=== PATIENT | male | born 2000 | race Caucasian/White ===

== ENCOUNTER → 2023-07-12 12:43 | Outpatient (CLI) | payer OTHER, SELFPAY ==
--- NOTE | ~2023-07-12 | MR_ITS ---
MRI of the left foot CLINICAL HISTORY: Pain TECHNIQUE: Axial proton-density and proton-density fat-sat images, sagittal T1-weighted and STIR imag es, and coronal T1-weighted and proton-density fat-sat images were acquired. FINDINGS: There is mild degenerative change of the first metatarsophalangeal joint, with focal subcho ndral marrow edema at the first metatarsal head, as well as chondromalacia of the joint. There is als o mild degenerative change of the interphalangeal joint of the great toe. Remaining joint spaces are preserved. No other bone marrow signal abnormality seen. No evidence for fracture or osteomyelitis. N o significant joint effusion identified. Flexor and extensor tendons appear intact. Visualized plantar fascia is intact. Intrinsic muscular fo ot is unremarkable. No intermetatarsal bursitis or Mueller's neuroma. No soft tissue mass or fluid col lection. Lisfranc ligament is intact. IMPRESSION: Mild degenerative change of the first MTP joint and interphalangeal joint of the great toe. Reviewed, dictated and finalized at location . IMPRESSION: Mild degenerative change of the first MTP joint and interphalangeal joint of th e great toe.
== END ==
PROVIDERS: PCP Physical Medicine & Rehabilitation; Visit Provider Physical Medicine & Rehabilitation
DX: M79.672 Pain in left foot (principal)
CPT/HCPCS: 73718

== ENCOUNTER 2023-11-15 00:19 | Day surgery (SDC) | payer OTHER, SELFPAY ==
[2023-11-11 10:13] VITALS: BMI 24.4
--- NOTE | 2023-11-11 10:16 | PC.NURSE ---
Report to the Outpatient Waiting Room, entrance under the green pavilion located off [facility], at time 0630 on date 11/15/23. Planned Procedure Time: . Time changes happen often and if your time is changed the preop area will call you the afternoon before. - You and your visitor will be asked to self-screen and do not enter if you have any COVID symptoms. - A mask is optional within the hospital at this time. Patients may have clear liquids (water, carbonated beverages, clear teas, apple juice) until 3 hours prior to surgery with a maximum of 20 ounces. - No food from midnight until time of surgery Take the following medications with a SIP of water the morning of surgery: N/A DO NOT STOP ANY OF YOUR OTHER PRESCRIPTION MEDICATIONS PRIOR TO SURGERY ?EXCEPT THE FOLLOWING Medications to discontinue per physician: N/A Date to take last dose: N/A Please no make-up, nail malawian, hairspray, perfume, deodorant, or body powder the day of surgery. No jewelry (including any body piercings) or valuables the day of surgery, leave them at home. Please take a shower or bath the night before, or the morning of, surgery with an antibacterial soap. Wear comfortable, loose fitting clothing. - Jewelry must be removed prior to entering the operating room. Rings and piercings that are not removed may be cut off. - The hospital will not accept responsibility for valuables. - Please leave all valuables, including medications, at home the day of surgery. If you are going home after surgery, a licensed flatbed truck driver must drive you home. - NO public transportation without another adult if you receive anesthesia. - We recommend that an adult stay with you for 24 hours following discharge. - We also recommend that you do not drive, make important decision, drink alcoholic beverages, or take any drugs that were not prescribed by your health care provider for at least 24 hours after your discharge time. Follow any additional instructions given to you from your surgeon. If you or anyone in your household have experienced Covid symptoms in the past week, please notify your surgeon or the nurse liaison at the phone number below for possible testing. Telephone instructions given to PT Estee HORTON and asked if any additional questions and then verbalized understanding. Patient advised to call surgeon office or pre surgery nurse liaison [phone] if any additional questions.
--- NOTE | 2023-11-14 10:23 | PM.IMHP ---
H&P: HPI History of Present Illness Date/Time: 11/14/23 10:23 Chief Complaint: Nasal obstruction septal deviation turbinate hypertrophy nasal adhesions from turbinates to septum Narrative: planned procedure Review of Systems Review of Systems: All systems reviewed & are unremarkable except as noted in HPI and below [facility] Social History Social History (Updated 09/04/23 @ 16:16 by Angela White [facility]) Smoking status: Never smoker Alcohol intake: current Alcohol use details: RARE Substance use: never Substance use type: does not use Lack of Transportation: No Lack of Food: Never True Current Housing: I Have Housing Concerned About Future Housing: No Difficulty Paying Gas/Electric Bills: No Difficulty Paying for Meds: No Currently Unemployed: No Education: Bachelor's Degree Difficulty w/ Childcare or Family Care: No Living arrangements: with family Spiritual care concerns: No Meds Home Medications and Allergies Home Medications Medication Instructions Recorded Confirmed Type No Home Medications 11/11/23 11/11/23 History Allergies Allergy/AdvReac Type Severity Reaction Status Date / Time No Known Allergies Allergy Mild Unverified 11/11/23 10:12 Exam Narrative: severe adhesions bilateral nasal passage turbinates to septum, turbinate hypertrophy, septal deviation Assessment and Plan Assessment and plan (1) Nasal septal deviation: Code(s): J34.2 - Deviated nasal septum Status: Acute Assessment and Plan: plan OR lysis of adhesions turbinate outfracture inferior bilaterally. Possible endoscopic assisted septoplasty. Possible inferior turbinate reduction. Risks discussed including re-formation of scar tissue postoperative bleeding infection need for time off work time off school need for prolonged splint placement given severity of adhesions and propensity to form adhesions. Septal perforation. Need for further procedures. Damage to any structure of the clavicles by myself damage to any structure induction and maintenance of anesthesia including vocal cord paralysis. Inherent risk of narcotic use. (2) Hypertrophy of both inferior nasal turbinates: Code(s): J34.3 - Hypertrophy of nasal turbinates Status: Acute (3) Adhesions of nasal septum and turbinates: Code(s): J34.89 - Other specified disorders of nose and nasal sinuses Status: Acute (4) Nasal obstruction: Code(s): J34.89 - Other specified disorders of nose and nasal sinuses Status: Acute
--- NOTE | 2023-11-14 14:04 | WPDANESEPPF ---
Anes - Initial Pre Proc Eval Procedure: Operation Date: 11/15/23 09:30 Proposed Procedures p Lysis of Nasal Adhesions, Possible Bilateral Inferior Turbinate Reduction with Outfracture - Evert Joe MD s Possible Endoscopic Septoplasty - Evert Joe MD Date/Time: 11/14/23 14:04 Surgeon: Evert Joe MD Pre Op Diagnosis: Septal Dev, Turbinate Hypertrophy Patient Data Age: 23 Gender: M Height: 1.83 m Weight: 81.65 kg Allergies Allergy/AdvReac Type Severity Reaction Status Date / Time No Known Allergies Allergy Mild Unverified 11/15/23 08:03 Home Medications Medication Instructions Recorded Confirmed Type No Home Medications 11/11/23 11/15/23 History Patient hx anesthesia problems: none Family hx anesthesia problems: none Results Review: All pre-operative results and documents have been reviewed as part of the pre-operative evaluation. [facility] Social History Social History (Updated 09/04/23 @ 16:16 by Angela White [facility]) Smoking status: Never smoker Alcohol intake: current Alcohol use details: RARE Substance use: never Substance use type: does not use Lack of Transportation: No Lack of Food: Never True Current Housing: I Have Housing Concerned About Future Housing: No Difficulty Paying Gas/Electric Bills: No Difficulty Paying for Meds: No Currently Unemployed: No Education: Bachelor's Degree Difficulty w/ Childcare or Family Care: No Living arrangements: with family Spiritual care concerns: No Anes - Eval Final PreProcedure Day of Procedure 11/14/23 14:04 Patient weight: normal Heart: regular rate and rhythm Lungs: clear to auscultation Airway: Mallampati scale class 1 Neurological: alert and oriented Last oral intake: >/= 8 hours ASA classification: I Emergent: no Anesthetic plan: proceed Anesthesia type and monitoring: general ETT and standard monitoring Results Review: All pre-operative results and documents have been reviewed as part of the pre-operative evaluation. Informed Consent: The patient's anesthetic plan and its attendant risks and benefits were discussed with the patient/family/POA. Questions were solicited and answers provided to the satisfaction of the patient/family/POA.
[2023-11-15] VITALS (7 sets, daily range): BP systolic 105–142; BP diastolic 47–94; PULSE 56–69; RESP 8–16; TEMP 36.3–36.5; O2SAT 98–100
[2023-11-15] MEDS: ACETAMINOPHEN 500 MG TABLET 1000 MG PO (07:00)
[2023-11-15] MEDS: LACTATED RINGERS 1,000 ML 30 ML IV CONT ×2 (07:00→10:32)
--- NOTE | 2023-11-15 07:21 | WPDHPUPDATE1 ---
History and Physical Update Update Date/Time: 11/15/23 07:21 History and Physical has been reviewed, including an updated exam of the patient. There are NO changes in the patient's condition. Risks, benefits, and alternatives have been discussed and questions answered. Patient agrees to proceed with procedure.
[2023-11-15] MEDS: ceFAZolin 2 GM/D5W 50 ML 2 GM/50 ML BAG IVPB (08:55)
[2023-11-15] MEDS: OXYMETAZOLINE HCL 0.05% NAS 15 ML BTL (*BKC) 1 SPRAY NASAL (09:07)
[2023-11-15] MEDS: LIDO 1%/EPINEPHRINE 1:100,000 50 ML VIAL INFILTRATE (09:08)
[2023-11-15] MEDS: oxyCODONE HCL (*CRX) 5 MG TAB IR PO (11:46)
--- NOTE | 2023-11-15 12:54 | P.OP_ITS ---
Procedure Note - Detailed Date of Procedure 11/15/23 Pre-op Diagnosis Septal Dev, Turbinate Hypertrophy Post-op Diagnosis Same Procedure Performed Endoscopic assisted septoplasty. Bilateral inferior turbinate reduction with outfracture. Lysis of adhesions. Surgeon Evert Joe MD Anesthesia General Indications See above Findings it appears that there is a septal perforation that scarred down to the turbinates and the turbinates scarred to each other through the septal perforation. I was able to complete the superior part of the septoplasty the inferior was already done essentially. I was able rotate cartilage into what would be a septal perforation although there was scar tissue on both sides so technically was no perforation this was just an added safety measure. Was able to reduce the turbinates. [place] all the tissue. Closed everything up with minimal bleeding. Patient tolerated the procedure well Description of Procedure patient identified consent verified preop. Patient brought to the operating room. Time-out performed. General anesthesia induced endotracheal tube secured airway. Patient prepped draped positioned procedure confirmed 2nd time-out performed. Afrin-soaked pledgets placed for 5 minutes then removed. Nasal passage examine decision was made to open up the septum to see what the previous surgeon had performed. Total of 13 cc 1% lidocaine 1 100,000 parts epinephrine injected the bilateral nasal septum scar tissue and inferior turbinates. Eduar incision made left side. Left nasal septal flap elevated. It was evident at this time that the scar tissue at scarred through the septum. I was able to rotated pieces septum down into this. Deviated septum removed with Sean Carlin forceps Marjan forceps and osteotome. [place] incision closed 3 interrupted 5 0 fast gut sutures. The scar tissue lysed with sharp curved iris scissors. Turbinates reduced anteriorly using microdebrider with 2.5 mm turbinate blade there really edematous. Garcia splints were then placed. Everything looks great turbinates were also outfractured with [facility] [facility] [employer] [facility] elevator. Septum was in much better position there is no scar tissue. Garcia splints were sutured anteriorly using a through mattress nylon suture. Patient tolerated everything very well. Blood loss 15 cc. No immediate complications. I performed all dictated portions of procedure. Patient taken to PACU. Estimated Blood Loss 15 Drains No Packing No Pathology None sent Complications No immediate complications Condition Stable Disposition PACU [facility] Billing Surgery - Charge Forward: Surgery Billing
== END 2023-11-15 12:10 | disposition home or self-care (01) ==
PROVIDERS: PCP Physical Medicine & Rehabilitation; Visit Provider Otolaryngology
PROC: (CPT 30520; principal; 2023-11-15 09:30)
PROC: (CPT 30520; 2023-11-15 09:30)
DX: J34.3 Hypertrophy of nasal turbinates (principal); J34.2 Deviated nasal septum
CPT/HCPCS: 30520; 30140; A9270; J0690; J1100; J2250; J2405; J2704; J3010; J7050; J7120